=== PATIENT | male | born 1985 ===

== ENCOUNTER 2023-03-24 12:01 | Outpatient (REF) | payer MEDICAID, SELFPAY ==
[2023-03-24 13:08] LABS: MANUAL DIFF FLAG NO
[2023-03-24 13:13] LABS: Basophils Absolute Auto 0.1 X10*3/uL (0.0-0.2); Basophils Percent Auto 0.8 % (0-2); Eosinophils Absolute Auto 0.1 X10*3/uL (0.0-0.4); Eosinophils Percent Auto 1.1 % (0-4); Hematocrit 45.6 % (42.0-52.0); Hemoglobin 15.3 g/dl (14.0-18.0); Imm Gran Abs Auto 0.03 X10*3/uL (0.00-0.03); Imm Gran Pct Auto 0.3 % (0.0-0.4); Lymphocytes Absolute Auto 2.3 X10*3/uL (1.2-4.9); Lymphocytes Percent Auto 25.7 % (20-40); Mean Corpuscular HGB Conc 33.6 g/dl (31.0-36.0); Mean Corpuscular Hemoglobin 29.9 pg (27.0-33.0); Mean Corpuscular Volume 89.1 fL (80.0-98.0); Monocytes Absolute Auto 0.8 X10*3/uL (0.1-1.2); Neutrophils Absolute Auto 5.7 x10*3/uL (2.0-8.3); Neutrophils Percent Auto 63.1 % (45-73); Platelet Count 294 X10*3/uL (160-400); Red Blood Count 5.12 X10*6/uL (4.60-5.80); Red Cell Distribution Width 13.3 % (11.0-16.0); White Blood Count 9.1 X10*3/uL (4.8-10.8)
[2023-03-24 13:37] LABS: Alanine Aminotransferase 21 U/L (0-40); Albumin Level 4.4 g/dL (3.5-5.0); Alkaline Phosphatase 57 U/L (39-117); Anion Gap 9 (12-20); Aspartate Amino Transferase 22 U/L (5-37); Bilirubin Total 0.7 mg/dL (0.0-1.0); Blood Urea Nitrogen 10 mg/dL (9-16); Calcium 9.7 mg/dL (8.4-10.2); Carbon Dioxide 29 mmol/L (22-29); Chloride 106 mmol/L (96-108); Cholesterol 126 mg/dL (<200); Estimated Glomerular Filt Rate > 60; Glucose Random 89 mg/dL (60-115); HDL Cholesterol 49 mg/dL (>40); LDL Cholesterol Calculated 66 mg/dL (<100); Potassium 3.6 mmol/L (3.3-5.1); Sodium 140 mmol/L (135-145); Total Protein 7.1 g/dL (6.5-8.0); Triglycerides 57 mg/dL (<150)
[2023-03-24 13:55] LABS: Thyroid Stimulating Hormone 0.74 uIU/mL (0.32-4.0)
== END 2023-03-24 12:02 | disposition home or self-care (01) ==
LOC: HO.10HDL 12:01
PROVIDERS: Visit Provider Internal Medicine
DX: Z00.00 Encounter for general adult medical examination without abnormal findings (principal); F43.12 Post-traumatic stress disorder, chronic; L20.81 Atopic neurodermatitis; M54.50 Low back pain, unspecified; Z89.611 Acquired absence of right leg above knee
CPT/HCPCS: 36415; 80053; 80061; 84443; 85025

== ENCOUNTER 2024-01-17 10:54 | Outpatient (REF) | payer MEDICAID, SELFPAY | END 2024-01-17 10:55 | disposition home or self-care (01) | LOC: HO.LNP 10:54 | PROVIDERS: PCP Internal Medicine; Referring Provider Internal Medicine; Visit Provider Surgery | DX: L72.11 Pilar cyst (principal) | CPT/HCPCS: 11424; 88304; 99202 ==

== ENCOUNTER 2024-01-17 10:54 | Outpatient (AMB) | payer MEDICAID, SELFPAY ==
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
[2024-01-17 10:58] VITALS: BMI 19.8
== END 2024-01-17 11:40 | disposition home or self-care (01) ==
PROVIDERS: PCP Internal Medicine; Referring Provider Internal Medicine; Visit Provider Surgery
DX: R22.0 Localized swelling, mass and lump, head (principal); L72.0 Epidermal cyst
CPT/HCPCS: 11424; 99204

== ENCOUNTER 2024-01-30 11:42 | Outpatient (AMB) | payer MEDICAID, SELFPAY ==
--- NOTE | 2024-01-30 11:51 | MHC.OFFVIS ---
Intake Visit Reasons: s/p excision sebaceous cyst scalp Intake Note: Patient here s/p excision cyst on mid post scalp. Reports incision healing well. Patient c/o: denies oozing, pain. EXC: 01-17-2024. 3 sutures removed without incident. 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 No wound issues or complaints. Pathology is benign [facility] Medical History (Updated 01/31/24 @ 09:03 by Mark Mendieta MD) Employs prosthetic leg Depression Anxiety Surgical History (Updated 01/26/24 @ 15:40 by ORQUIDEA Stringer) Hx of surgical procedure (01/17/24) Social History (Updated 01/17/24 @ 11:03 by ORQUIDEA Stringer) Alcohol intake: current Alcohol intake frequency: holidays/special occasions only Alcohol type: beer Patient Tobacco Use Status: Never used Tobacco Substance Use Type: Marijuana Physical Exam HEENT Other: Wound healing well. Sutures uneventfully removed Assessment & Plan Assessment & Plan (1) Postop check: Code(s): Z09 - Encounter for follow-up examination after completed treatment for conditions other than malignant neoplasm Category: Medical Plan Patient has been given local instructions, and will follow-up p.r.n.. All questions answered. Coding Level of Care Code Global (74078) Diagnoses Postop check Z09
== END 2024-01-30 11:51 | disposition home or self-care (01) ==
PROVIDERS: PCP Internal Medicine; Visit Provider Surgery
DX: Z09 Encounter for follow-up examination after completed treatment for conditions other than malignant neoplasm (principal)
CPT/HCPCS: 99024

== ENCOUNTER → 2024-01-30 11:42 | Outpatient (BNVA) | payer MEDICAID, SELFPAY | PROVIDERS: PCP Internal Medicine; Visit Provider Surgery | DX: Z09 Encounter for follow-up examination after completed treatment for conditions other than malignant neoplasm (principal); Z87.2 Personal history of diseases of the skin and subcutaneous tissue | CPT/HCPCS: 99212 ==